=== PATIENT | female | born 1975 | race Caucasian/White ===

== ENCOUNTER → 2016-11-08 | Day surgery (SDC) | payer BC ==
[~2016-11-08] MED LIST: AMITRIPTYLINE H25 MG PO; CELEXA PO; DEMEROL PO; FLEXERIL10 M1 PO; FLEXERIL10 MG; FLEXERIL10 MG PO; HYDROCODON-ACE1 EAC5 PO; HYDROCODONE-APA1 T54 PO; IBUPROFEN PO; IRON1 TAB PO; METOPROLOL SUCC50 MG PO; MULTI VITAMIN1 EACH PO; OMEPRAZOLE40 M1 PO; PHENERGAN PO; PREVACID PO; TOPAMAX50 MG PO; TOPROL XL 50 MG50 MG PO; TOPROL XL PO; TOPROL XL100 MG PO; VICODIN 5/1 TAB 5/50 PO; VITAMIN B122500 MCG PO; VITAMIN D50000 UNIT PO; ZOFRAN PO
--- NOTE | ~2016-11-08 | OR ---
Unit #: [id number] #: [id number] Patient: VINITA ENGEL [id number] [address] [place], [place] [address] [id number] MR#: [id number] NAME: VINITA ENGEL ROOM: Date of Procedure: 11/08/2016 Admission Date: 11/08/2016 Surgeon: Ethan Escobar III, M.D. : 1975 Attending Physician: Ethan Escobar III, M.D. Referring Physician: Ethan Escobar III, M.D. Primary Care Physician: Cheli Parks M.D. OPERATIVE REPORT PREOPERATIVE DIAGNOSES Dysphagia, diarrhea, constipation. POSTOPERATIVE DIAGNOSIS Normal upper and lower endoscopy. PROCEDURES PERFORMED Esophagogastroduodenoscopy with biopsy and colonoscopy to cecum. ANESTHESIA MAC. SPECIMENS Antrum was sent for CLOtesting. COMPLICATIONS None apparent. INDICATIONS FOR PROCEDURE This is a 41-year-old lady, who presented to my office. She had a Lap-Band placed by Dr. Harris and he recently has had some dysphagia and some diarrhea and constipation. She is here today for upper and lower endoscopy. DESCRIPTION OF PROCEDURE After consent was obtained, the patient was brought to the endoscopy suite and placed in the left lateral decubitus position. I titrated the above sedation and passed an EGD scope easily into the esophagus under direct visualization. She had normal peristalsis. No evidence of any erosions or esophagitis. Her Lap-Band appeared to be in good position. The opening of the band was patent. I was able to advance the scope easily through the band opening to the rest of the stomach. She had normal lining of the stomach with no ulceration or masses. The pylorus was patent and the first and second portions of the duodenum appeared normal. I did take a biopsy of the antrum for CLOtesting. I retroflexed the scope within the cardia and again examined the band thoroughly. There was no evidence of an erosion. The scope was straightened and then carefully withdrawn. I then performed a rectal exam and did not feel any masses. The scope was placed within the rectal vault. Air was insufflated. I navigated the scope all the way to the cecum without any difficulty. She had normal mucosa. No evidence of any polyps or masses and no diverticular disease was seen. The scope was retroflexed within the Unit #: [id number] #: [id number] Patient: VINITA ENGEL rectum. No other masses were seen. The scope was then carefully withdrawn. The patient tolerated the procedure without any problems and returned to the recovery room in stable condition. Dictated by... Ethan Escobar III, M.D. VCL/lea TD: 11/08/2016 08:40 JOB #: [id number] CC: Cheli Parks M.D. OPERATIVE REPORT Page 1 of 1 X Ethan Escobar III, MD PROCEDURE OPERATIVE NOTE
== END | disposition home or self-care (01) ==
LOC: COPS 05:20
DX: R13.10 Dysphagia, unspecified (principal); R19.7 Diarrhea, unspecified; K59.00 Constipation, unspecified; Z98.84 Bariatric surgery status; M19.90 Unspecified osteoarthritis, unspecified site; K21.9 Gastro-esophageal reflux disease without esophagitis; I10 Essential (primary) hypertension; E66.01 Morbid (severe) obesity due to excess calories; Z88.0 Allergy status to penicillin; Z88.2 Allergy status to sulfonamides; Z88.8 Allergy status to other drugs, medicaments and biological substances; Z79.891 Long term (current) use of opiate analgesic; Z79.899 Other long term (current) drug therapy; Z79.52 Long term (current) use of systemic steroids; Z90.49 Acquired absence of other specified parts of digestive tract
CPT/HCPCS: 84703; 87077; J2250